=== PATIENT | female | born 1940 | race Caucasian/White ===

== ENCOUNTER 2017-11-11 17:54 | Emergency (ER) | payer MEDICARE ==
[~2017-11-11] VITALS: Ht 152.4 cm; Wt 46.7 kg
[2017-11-11] MEDS ORDERED: PROCARDIA XL30 MG PO (18:07)
[2017-11-11] MEDS ORDERED: TRICOR145 MG PO (18:07)
[2017-11-11] MEDS ORDERED: FENOFIBRATE160 MG PO (18:08)
[2017-11-11] MEDS ORDERED: VITAMIN D3400 UNIT PO (18:09)
[2017-11-11] MEDS ORDERED: FIBER CHOICE C1.5 G1 PO (18:09)
[2017-11-11 18:40] LABS: URINE BILIRUBIN NEGATIVE (Negative); URINE BLOOD 1+ (Negative); URINE CLARITY CLEAR; URINE COLOR YELLOW; URINE GLUCOSE-RANDOM NEGATIVE (Negative); URINE KETONES NEGATIVE (Negative); URINE LEUKOCYTES-REFLEX NEGATIVE (Negative); URINE NITRITE-REFLEX NEGATIVE (Negative); URINE PROTEIN NEGATIVE (Negative); URINE SPECIFIC GRAVITY 1.025 (1.005-1.030); URINE UROBILINOGEN 0.2 E.U./dl (0.2-1.0)
[2017-11-11 18:43] LABS: MUCUS 0-3 Light strn/LPF (None Seen); SQUAMOUS >10 Many /LPF (0-3)
[2017-11-11 18:44] LABS: COARSE GRANULAR CASTS 0-3 Few /LPF (None Seen); HYALINE CASTS 0-3 Few /LPF (None Seen)
[2017-11-11 18:45] LABS: CALCIUM OXALATE 4-10 Moderate /LPF (None Seen)
[2017-11-11 18:47] LABS: BACTERIA-REFLEX 1-9 Few /HPF (None Seen); URINE WBC-REFLEX 0-5 Rare /HPF (0-5)
[2017-11-11 19:06] LABS: HEMOGLOBIN 13.6 gm/dL (12.0-15.0); MCH 29.4 pg (26.0-34.0); MCV 88.9 fL (80.0-100.0); MPV 8.2 fl. (7.2-11.1); NUCLEATED RBCS 0 /100WBC; PLATELET COUNT* 363 thou/uL (150-400)
[2017-11-11 19:08] LABS: ABSOLUTE BASOPHILS 0.1 thou/uL (0.0-0.2); ABSOLUTE EOSINOPHILS 0.3 thou/uL (0.0-0.7); ABSOLUTE LYMPHOCYTES 2.2 thou/uL (0.8-5.3); ABSOLUTE MONOCYTES 1.1 thou/uL (0.0-1.2); ABSOLUTE NEUTROPHILS 7.9 thou/uL (1.6-8.1); EOSINOPHILS 2.2 %; HEMATOCRIT 41.3 % (37.0-47.0); LYMPHOCYTES 19.1 %; MONOCYTES 9.6 %; POLYS 68.1 %; RBC 4.65 mil/uL (4.20-5.00); RDW-CV 14.8 % (10.5-14.5); WBC 11.6 thou/uL (4.0-11.0)
[2017-11-11 19:12] LABS: CALCIUM 9.9 mg/dL (8.5-10.1); CREATININE 1.4 mg/dL (0.6-1.3); POTASSIUM 3.7 mmol/L (3.5-5.1)
[2017-11-11 19:17] LABS: ALBUMIN 3.6 g/dL (3.4-5.0); TOTAL BILIRUBIN 0.2 mg/dL (<0.1-1.0); TOTAL PROTEIN 7.1 g/dL (6.4-8.2)
[2017-11-11] MEDS ORDERED: FLOMAX0.4 MG PO (19:59)
[2017-11-11] MEDS ORDERED: NORCO 5-325 TA1 EAC1 PO (19:59)
[2017-11-11 20:13] VITALS: BP 173/85
== END 2017-11-11 20:21 | disposition home or self-care (01) ==
LOC: M.ERS 17:54
PROVIDERS: Nurse Practitioner Family
DX: N20.0 Calculus of kidney (principal); I10 Essential (primary) hypertension; Z88.2 Allergy status to sulfonamides